=== PATIENT | male | born 1980 | race Caucasian/White ===

== ENCOUNTER 2023-12-27 18:16 | Emergency (ER) | payer MEDICAID, OTHER ==
[~2023-12-27] VITALS: Ht 177.8 cm; Wt 95.3 kg
[2023-12-27 18:35] VITALS: BP 119/80; PULSE 99; RESP 16; O2SAT 96
[2023-12-27] MEDS ORDERED: TETANUS, DIPHTHERIA, PERTUSSIS VAC/PF 0.5ML (>10YR OLD) IM ONE (19:00)
[2023-12-27 22:20] VITALS: TEMP 98.5
[2023-12-27] MEDS: ACETAMINOPHEN 325MG TABLET PO NR (22:20)
[2023-12-27] MEDS: CEFAZOLIN SODIUM 1000MG/VIAL IM NR (22:43)
[2023-12-27] MEDS: TETANUS, DIPHTHERIA, PERTUSSIS VAC/PF 0.5ML (>10YR OLD) IM ONE (22:43)
== END 2023-12-27 22:49 | disposition left against medical advice (07) ==
LOC: ER 18:16
DX: S61.452A Open bite of left hand, initial encounter (principal); F19.90 Other psychoactive substance use, unspecified, uncomplicated; W54.0XXA Bitten by dog, initial encounter; Y93.89 Activity, other specified; Y92.89 Other specified places as the place of occurrence of the external cause; Y99.8 Other external cause status
CPT/HCPCS: 73110; 73130; 90715; 90471; 96372; 99284; J0690; Z7610